=== PATIENT | female | born 1990 | race Caucasian/White ===

== ENCOUNTER 2024-08-01 04:15 | Emergency (ER) | payer MEDICAID, SELFPAY ==
[2024-08-01 04:18] VITALS: BP 148/81; PULSE 101; RESP 18; TEMP 36.7; O2SAT 97; BMI 28.3
--- NOTE | 2024-08-01 04:19 | ECG_ITS ---
[facility]: 2024-[facility]-01 Pat Name: Shawnee Cordoba Department: Room: Gender: Female Real Estate Legal Assistant: : 1990 Requested By: Alina De La Rosa Order Number: [id number] Ribera MD: Andrea Napier M.D. Measurements Intervals [place] Rate: 94 P: 68 [place]: 155 QRS: 87 QRSD: 93 T: 39 QT: 368 QTc: 461 Interpretive Statements SINUS RHYTHM No previous ECG available for comparison Electronically Signed On 08-05-2024 09:30:14 CDT by Andrea Napier M.D. [id number]
--- NOTE | 2024-08-01 04:23 | ED_ITS ---
Documented by User: Alina Doyle MD 08/01/24 05:07 HPI - Chest Pain 2 General: Chief Complaint: Chest Pain Stated Complaint: Chest Pain SOB Time Seen by Provider: 08/01/24 04:23 History of Present Illness: 34-year-old female presents emergency ro om with chest pain. She says it started this morning. Epigastric. Some mild nausea. Is starting to resolve. She has had a similar episode where she went to an emergency room with a need EKG and labs and sent her home. No known cardiac history. Related Data Previous Rx's ?Medication ?Instructions ?Recorded pantoprazole 40 mg tablet,delayed 40 mg PO DAILY #30 t abs 08/01/24 release (Protonix) Allergies Allergy/AdvReac Type Severity Reaction Status Date / Time No Known Allergies Allergy Verified 08/01/24 04:21 Review of Systems 2 Narrative: Constitutional symptoms: Negative except as documented in HPI. Skin symptoms: Negative except as documented in HPI. Eye symptoms: Negative except as documented in HPI. ENMT symptoms: Negative except as documented in HPI. Respiratory symptoms: Negative except as documented in HPI. Cardiovascular symptoms: Negative except as documented in HPI. Gastrointestinal symptoms: Negative except as documented in HPI. Genitourinary symptoms: Negative except as documented in HPI. Musculoskeletal symptoms: Negative except as documented in HPI. Neurologic symptoms: Negative except as documented in HPI. Psychiatric symptoms: Negative except as documented in HPI. Endocrine symptoms: Negative except as documented in HPI. [facility] ED 2 Female Reproductive History: Date of last menstrual period: 07/23/24 Physical Exam 2 Narrative: EXAM NARRATIVE: General: Alert, no acute distress. Skin: Warm, dry. Head: Normocephalic, atraumatic. Neck: Supple, trachea midline. Eye: Extraocular movements are intact. Ears, nose, mouth and throat: mucosa moist. Cardiovascular: Regular, Normal peripheral perfusion. Respiratory: Lungs are clear to auscultation, respirations are non-labored, breath sounds are equal, Symmetrical chest wall expansion. Gastrointestinal: Soft, Nontender, Non distended Musculoskeletal: Normal ROM, no deformity. Neurological: Alert and oriented, No focal neurological deficit observed. Psychiatric: Cooperative, appropriate mood & affect. Course 2 Vital Signs: Vital signs: Vital Signs Temperature 98.0 F 08/01/24 04:18 Pulse Rate 67 08/01/24 06:42 Respiratory Rate 16 08/01/24 06:42 Blood Pressure 106/67 08/01/24 06:42 Pulse Oximetry 98 08/01/24 06:42 Oxygen Delivery Me thod Room Air 08/01/24 06:42 MDM - Chest Pain Medical Decision Making Differential diagnosis for patient with chest pain includes but is not limited to and based on the above HPI, review of systems and physical exam: Pneumonia. unstable angina. angina. Acute coronary syndrome / [place]. Pulmonary embolism. Costochondritis / musculoskeletal. Pleurisy. Pericarditis. Esophageal spasm. Pancreatis. Cholecystitis. Orders placed to evaluate differential diagnosis based on the above differential, HPI and physical exam EKG: Time 4:19 AM. Rate 94. Normal sinus rhythm, No ST-T changes, no ectopy, normal MD & QRS intervals, This was reviewed and interpreted by myself the ER physician at 4:25 AM Chest x-ray: No acute process. No infiltrate. No pneumothorax. This was reviewed and interpreted by myself the emergency room physician. I also reviewed the radiology report. Patient care transitioned to Dr. Carballo shift change. Awaiting second troponin. Lab Data 08/01/24 04:37 08/01/24 04:37 Radiology Impressions Chest X-Ray 08/01/24 04:23 IMPRESSION: No acute findings. Laboratory Results WBC 6.46 10^3/uL (3.29-11.43) 08/01/24 04:37 RBC 4.20 10^6/uL (3.85-5.65) 08/01/24 04:37 Hgb 12.80 g/dL (11.27-16.99) 08/01/24 04:37 Hct 37.6 % (36-47) 08/01/24 04:37 MCV 89.5 fl (85-98) 08/01/24 04:37 MCH 30.5 pg (27-33) 08/01/24 04:37 MCHC 34.0 g/dL (30-55) 08/01/24 04:37 RDW 12.0 % (12.1-15.1) L 08/01/24 04:37 Plt Count 250 10^3/cmm (157-399) 08/01/24 04:37 MPV 10.5 fL (7.4-10.4) H 08/01/24 04:37 Neut % (Auto) 49.4 % 08/01/24 04:37 Lymph % (Auto) 37.9 % 08/01/24 04:37 Harper % (Auto) 9.3 % 08/01/24 04:37 Eos % (Auto) 2.2 % 08/01/24 04:37 Baso % (Auto) 0.9 % 08/01/24 04:37 Neut # (Auto) 3.19 10^3/uL (1.8-7.7) 08/01/24 04:37 Lymph # (Auto) 2.5 10^3/uL (0.8-4.8) 08/01/24 04:37 Harper # (Auto) 0.6 10^3/uL (0.2-0.9) 08/01/24 04:37 Eos # (Auto) 0.1 10^3/uL (0.0-0.8) 08/01/24 04:37 Baso # (Auto) 0.1 10^3/uL (0.0-0.1) 08/01/24 04:37 Nucleated RBC % (auto) 0 % 08/01/24 04:37 Nucleated RBCs # 0.0 /100WBC 08/01/24 04:37 Sodium 141 mmol/L (136-145) 08/01/24 04:37 Potassium 4.0 mmol/L (3.5-5.1) 08/01/24 04:37 Chloride 107 mmol/L (98-107) 08/01/24 04:37 Carbon Dioxide 26 mmol/L (22-29) 08/01/24 04:37 Anion Gap 12.0 (5-19) 08/01/24 04:37 BUN 7 mg/dL (6-20) 08/01/24 04:37 Creatinine 0.6 mg/dL (0.5-0.9) 08/01/24 04:37 GFR Calculation 114.4 mL/min (90-130) 08/01/24 04:37 Glucose 115 mg/dL (65-115) 08/01/24 04:37 Calculated Osmolality 291 mOsm/kg (285-295) 08/01/24 04:37 Calcium 8.7 mg/dL (8.5-10.5) 08/01/24 04:37 Total Bilirubin 0.3 mg/dL (0.15-1.2) 08/01/24 04:37 AST 26 U/L (0-32) 08/01/24 04:37 ALT 16 U/L (0-33) 08/01/24 04:37 Alkaline Phosphatase 68 U/L (35-105) 08/01/24 04:37 Troponin T Baseline < 6 ng/L (0-10) 08/01/24 04:37 Troponin T 120 Minute 6.00 ng/L (0-10) 08/01/24 06:40 Delta Troponin T 0.43675 ABS# (0-10) 08/01/24 06:40 Total Protein 7.2 g/dL (6.6-8.7) 08/01/24 04:37 Albumin 4.2 g/dL (3.5-5.2) 08/01/24 04:37 Globulin 3.0 g/dL (1.3-4.6) 08/01/24 04:37 Lipase 43 U/L (13-60) 08/01/24 04:37 Discharge Plan Discharge Patient Disposition: Home Clinical Impression: Atypical chest pain Condition: Stable Prescriptions: New pantoprazole [Protonix] 40 mg tablet,delayed release (DR/EC) 40 mg PO DAILY Qty: 30 0RF Discharge Orders: Discharge ED (Routine); Ordered 08/01/24 Ordered By: Les Carballo Discharge Diet: As Directed Discharge Activity: Resume usual activity Patient Instructions: Opioid Safety, Pain Management, Diet for Stomach Ulcers and Gastritis (ED), GERD (Gastroesophageal Reflux Disease) (ED) Print Language: Georgian Sign Out Sign Out Data: Patient Sign Out occurred on 08/01/24 at 06:00. Patient's care was discussed, and care was transferred from Alina Doyle MD to Les Carballo DO. Coding Level of Care Code ED Dowel Inserting Machine Operator for Chg Fwd Documented by User: Les Carballo DO 08/01/24 07:23 HPI - Chest Pain 2 General: Chief Complaint: Chest Pain Stated Complaint: Chest Pain SOB Time Seen by Provider: 08/01/24 04:23 Related Data Previous Rx's ?Medication ?Instructions ?Recorded pantoprazole 40 mg tablet,delayed 40 mg PO DAILY #30 t abs 08/01/24 release (Protonix) Allergies Allergy/AdvReac Type Severity Reaction Status Date / Time No Known Allergies Allergy Verified 08/01/24 04:21 Course 2 Vital Signs: Vital signs: Vital Signs Temperature 98.0 F 08/01/24 04:18 Pulse Rate 67 08/01/24 06:42 Respiratory Rate 16 08/01/24 06:42 Blood Pressure 106/67 08/01/24 06:42 Pulse Oximetry 98 08/01/24 06:42 Oxygen Delivery Me thod Room Air 08/01/24 06:42 MDM - Chest Pain Medical Decision Making Differential diagnosis for patient with chest pain includes but is not limited to and based on the above HPI, review of systems and physical exam: Pneumonia. unstable angina. angina. Acute coronary syndrome / [place]. Pulmonary embolism. Costochondritis / musculoskeletal. Pleurisy. Pericarditis. Esophageal spasm. Pancreatis. Cholecystitis. Orders placed to evaluate differential diagnosis based on the above differential, HPI and physical exam EKG: Time 4:19 AM. Rate 94. Normal sinus rhythm, No ST-T changes, no ectopy, normal MD & QRS intervals, This was reviewed and interpreted by myself the ER physician at 4:25 AM Chest x-ray: No acute process. No infiltrate. No pneumothorax. This was reviewed and interpreted by myself the emergency room physician. I also reviewed the radiology report. Patient care transitioned to Dr. Carballo shift change. Awaiting second troponin. Care assumed at change of shift labs chart reviewed. Troponins negative vital signs stable EKG does not show any acute changes. Patient has no further symptoms repeat exam unremarkable reviewed EKGs laboratory findings will discharge home started on Protonix have her follow-up with her primary care doctor. She is not having any shortness of breath. Her oxygen sats have been normal she has not been tachycardic has no sign of any right heart strain on her EKG. Medical Records I reviewed the patient's medical records. Lab Data I reviewed the patient's lab results. 08/01/24 04:37 08/01/24 04:37 Radiology Impressions Chest X-Ray 08/01/24 04:23 IMPRESSION: No acute findings. Laboratory Results WBC 6.46 10^3/uL (3.29-11.43) 08/01/24 04:37 RBC 4.20 10^6/uL (3.85-5.65) 08/01/24 04:37 Hgb 12.80 g/dL (11.27-16.99) 08/01/24 04:37 Hct 37.6 % (36-47) 08/01/24 04:37 MCV 89.5 fl (85-98) 08/01/24 04:37 MCH 30.5 pg (27-33) 08/01/24 04:37 MCHC 34.0 g/dL (30-55) 08/01/24 04:37 RDW 12.0 % (12.1-15.1) L 08/01/24 04:37 Plt Count 250 10^3/cmm (157-399) 08/01/24 04:37 MPV 10.5 fL (7.4-10.4) H 08/01/24 04:37 Neut % (Auto) 49.4 % 08/01/24 04:37 Lymph % (Auto) 37.9 % 08/01/24 04:37 Harper % (Auto) 9.3 % 08/01/24 04:37 Eos % (Auto) 2.2 % 08/01/24 04:37 Baso % (Auto) 0.9 % 08/01/24 04:37 Neut # (Auto) 3.19 10^3/uL (1.8-7.7) 08/01/24 04:37 Lymph # (Auto) 2.5 10^3/uL (0.8-4.8) 08/01/24 04:37 Harper # (Auto) 0.6 10^3/uL (0.2-0.9) 08/01/24 04:37 Eos # (Auto) 0.1 10^3/uL (0.0-0.8) 08/01/24 04:37 Baso # (Auto) 0.1 10^3/uL (0.0-0.1) 08/01/24 04:37 Nucleated RBC % (auto) 0 % 08/01/24 04:37 Nucleated RBCs # 0.0 /100WBC 08/01/24 04:37 Sodium 141 mmol/L (136-145) 08/01/24 04:37 Potassium 4.0 mmol/L (3.5-5.1) 08/01/24 04:37 Chloride 107 mmol/L (98-107) 08/01/24 04:37 Carbon Dioxide 26 mmol/L (22-29) 08/01/24 04:37 Anion Gap 12.0 (5-19) 08/01/24 04:37 BUN 7 mg/dL (6-20) 08/01/24 04:37 Creatinine 0.6 mg/dL (0.5-0.9) 08/01/24 04:37 GFR Calculation 114.4 mL/min (90-130) 08/01/24 04:37 Glucose 115 mg/dL (65-115) 08/01/24 04:37 Calculated Osmolality 291 mOsm/kg (285-295) 08/01/24 04:37 Calcium 8.7 mg/dL (8.5-10.5) 08/01/24 04:37 Total Bilirubin 0.3 mg/dL (0.15-1.2) 08/01/24 04:37 AST 26 U/L (0-32) 08/01/24 04:37 ALT 16 U/L (0-33) 08/01/24 04:37 Alkaline Phosphatase 68 U/L (35-105) 08/01/24 04:37 Troponin T Baseline < 6 ng/L (0-10) 08/01/24 04:37 Troponin T 120 Minute 6.00 ng/L (0-10) 08/01/24 06:40 Delta Troponin T 0.30449 ABS# (0-10) 08/01/24 06:40 Total Protein 7.2 g/dL (6.6-8.7) 08/01/24 04:37 Albumin 4.2 g/dL (3.5-5.2) 08/01/24 04:37 Globulin 3.0 g/dL (1.3-4.6) 08/01/24 04:37 Lipase 43 U/L (13-60) 08/01/24 04:37 All radiology interpretation(s) finalized by discharge Discharge Plan Discharge Patient Disposition: Home Clinical Impression: Atypical chest pain Condition: Stable Prescriptions: New pantoprazole [Protonix] 40 mg tablet,delayed release (DR/EC) 40 mg PO DAILY Qty: 30 0RF Discharge Orders: Discharge ED (Routine); Ordered 08/01/24 Ordered By: Les Carballo Discharge Diet: As Directed Discharge Activity: Resume usual activity Patient Instructions: Opioid Safety, Pain Management, Diet for Stomach Ulcers and Gastritis (ED), GERD (Gastroesophageal Reflux Disease) (ED) Print Language: Georgian Sign Out Sign Out Data: Patient Sign Out occurred on 08/01/24 at 06:00. Patient's care was discussed, and care was transferred from Alina Doyle MD to Les Carballo DO. Coding Level of Care Code ED Dowel Inserting Machine Operator for Serene Almazan
--- NOTE | 2024-08-01 04:23 | XRR_ITS ---
PROCEDURE INFORMATION: Exam: XR Chest Exam date and time: 08/01/2024 4:25 AM Age: 34 years old Clinical indication: Pain; Chest pressure and on breathing; Additional info: Chest pain TECHNIQUE: Imaging protocol: Radiologic exam of the chest. Views: 1 view. COMPARISON: No relevant prior studies available. FINDINGS: Lungs: Unremarkable. No consolidation. Pleural spaces: Unremarkable. No pleural effusion. No pneumothorax. Heart/Mediastinum: Unremarkable. No cardiomegaly. Bones/joints: Unremarkable. XR/XR chest 1V portable [id number] IMPRESSION: No acute findings.
[2024-08-01 04:43] LABS: Basophils # 0.1 10^3/uL (0.0-0.1); Basophils % 0.9 %; Eosinophils # 0.1 10^3/uL (0.0-0.8); Eosinophils % 2.2 %; Hematocrit 37.6 % (36-47); Lymphocytes # 2.5 10^3/uL (0.8-4.8); Lymphocytes % 37.9 %; Mean Corpuscular Hemoglobin 30.5 pg (27-33); Mean Corpuscular Volume 89.5 fl (85-98); Mean Platelet Volume 10.5 fL (7.4-10.4); Monocytes # 0.6 10^3/uL (0.2-0.9); Monocytes % 9.3 %; Neutrophils # 3.19 10^3/uL (1.8-7.7); Neutrophils % 49.4 %; Nucleated Red Blood Cells % 0 %; Platelet Count 250 10^3/cmm (157-399); White Blood Count 6.46 10^3/uL (3.29-11.43)
[2024-08-01 05:01] LABS: Troponin(5th) Baseline < 6 ng/L (0-10)
[2024-08-01 05:02] LABS: Alanine Aminotransferase 16 U/L (0-33); Albumin Level 4.2 g/dL (3.5-5.2); Alkaline Phosphatase 68 U/L (35-105); Aspartate Amino Transferase 26 U/L (0-32); Blood Urea Nitrogen 7 mg/dL (6-20); Calcium 8.7 mg/dL (8.5-10.5); Carbon Dioxide 26 mmol/L (22-29); Chloride 107 mmol/L (98-107); Creatinine Clr Calc Pharmacy 126.1191; Glomerular Filtration Rate 114.4 mL/min (90-130); Glucose 115 mg/dL (65-115); Lipase 43 U/L (13-60); Osmolality Calculated 291 mOsm/kg (285-295); Sodium 141 mmol/L (136-145); Total Bilirubin 0.3 mg/dL (0.15-1.2); Total Protein 7.2 g/dL (6.6-8.7)
[2024-08-01 05:36] VITALS: BP 115/57; PULSE 71; RESP 16; O2SAT 98
--- NOTE | 2024-08-01 06:16 | ECG_ITS ---
[facility] Date: 2024[facility]01 Pat Name: Shawnee Cordoba Department: Room: Gender: Female Senior Operator: : 1990 Requested By: Alina De La Rosa Order Number: [id number] Ribera MD: Andrea Napier M.D. Measurements Intervals [place] Rate: 65 P: 44 [place]: 149 QRS: 79 QRSD: 97 T: 42 QT: 403 QTc: 421 Interpretive Statements SINUS RHYTHM Compared to ECG 08/01/2024 04:19:29 No significant changes Electronically Signed On 08-05-2024 10:38:26 CDT by Andrea Napier M.D. [id number] [id number]
[2024-08-01 06:42] VITALS: BP 106/67; PULSE 67; RESP 16; O2SAT 98
[2024-08-01 07:01] LABS: Troponin 5 2HR Delta 0.00001 ABS# (0-10)
[2024-08-01 07:34] VITALS: PULSE 62; O2SAT 94
[2024-08-01 08:02] VITALS: BP 109/55; PULSE 59; RESP 13; O2SAT 94
[2024-08-01 09:05] VITALS: BP 101/67; PULSE 60; O2SAT 94
== END 2024-08-01 09:09 | disposition home or self-care (01) ==
PROVIDERS: Emergency Medicine; Emergency Provider Family Medicine
DX: R07.89 Other chest pain (principal)
CPT/HCPCS: 36415; 71045; 80053; 83690; 84484; 85025; 93005; 99285